=== PATIENT | female | born 1970 | race Caucasian/White ===

== ENCOUNTER 2021-11-01 00:26 | Day surgery (SDC) | payer OTHER, SELFPAY ==
[2021-10-19 12:46] VITALS: BMI 37.0
--- NOTE | 2021-11-01 09:38 | P.PNAN_ITS ---
Anes - Initial Pre Proc Eval Procedure: Operation Date: 11/01/21 10:30 Proposed Procedures p Colonoscopy - Yao Sandoval MD Date/Time: 11/01/21 09:38 Surgeon: Yao Sandoval MD Pre Op Diagnosis: positive cologuard Patient Data Age: 51 Gender: F Height: 1.5 m Weight: 83.1 kg Allergies Allergy/AdvReac Type Severity Reaction Status Date / Time adhesive tape AdvReac Itching Verified 11/01/21 09:44 Home Medications Medication Instructions Recorded Confirmed Type Bystolic 20 mg PO 2XD 10/19/21 10/19/21 History Humalog Mix 75-25(U-100)Insuln 46 units transdermal 1XD 10/19/21 10/19/21 History Humalog Mix 75-25(U-100)Insuln 58 units transdermal HS 10/19/21 10/19/21 History Zyrtec 10 mg PO DAILY 10/19/21 10/19/21 History aspirin 81 mg PO DAILY 10/19/21 10/19/21 History atorvastatin 40 mg tablet 40 mg PO DAILY 10/19/21 10/19/21 History mycophenolate sodium 360 mg 360 mg PO DAILY 10/19/21 10/19/21 History tablet,delayed release (Myfortic) nifedipine 30 mg tablet,extended 30 mg PO DAILY 10/19/21 10/19/21 History release 24 hr prednisone 5 mg tablet 5 mg PO DAILY 10/19/21 10/19/21 History Patient hx anesthesia problems: none Family hx anesthesia problems: none Results Review: All pre-operative results and documents have been reviewed as part of the pre- operative evaluation. [facility] Past Medical History Medical History (Updated 11/01/21 @ 09:39 by Gage Flores DO) Diabetes type 2, controlled GERD (gastroesophageal reflux disease) Hyperlipidemia Hypertension Polycystic kidney disease Social History Social History Smoking status: Never smoker Alcohol intake: current Alcohol use details: Socially Substance use: never Substance use type: does not use Living arrangements: with family Spiritual care concerns: No Anes - Eval Final PreProcedure Day of Procedure 11/01/21 09:38 Patient weight: obese Heart: regular rate and rhythm Lungs: clear to auscultation Airway: Mallampati scale class II Neurological: alert and oriented Last oral intake: >/= 8 hours ASA classification: III Emergent: no Anesthetic plan: proceed Anesthesia type and monitoring: general GIVS and standard monitoring Results Review: All pre-operative results and documents have been reviewed as part of the pre- operative evaluation. Informed Consent: The patient's anesthetic plan and its attendant risks and benefits were disc ussed with the patient/family/POA. Questions were solicited and answers provided to the satisfaction of the patient/family/POA.
[2021-11-01 09:45] VITALS: BP 179/86; PULSE 77; RESP 18; TEMP 36.6; O2SAT 98
--- NOTE | 2021-11-01 09:48 | SUR.PREOP ---
DR FLOYD NOTIFIED PT HAS HAD AN ABLATION, NO ORDERS FOR TEST PER DR FLOYD.
[2021-11-01 09:57] LABS: Glucose Point of Care 177 mg/dl (65-105)
[2021-11-01] MEDS: LACTATED RINGERS 1,000 ML 150 ML IV CONT (09:57)
--- NOTE | 2021-11-01 10:11 | PM.HPGS ---
History of Present Illness History of Present Illness Consent: Risks, benefits, and alternatives have been discussed and questions answered. Patient agrees to proceed with procedure. Chief complaint: positive cologuard Narrative: Ami Lewis is a 51 year old female here for first colonoscopy, had + cologuard Review of Systems Constitutional: Constitutional: Denies headache(s) and Denies weakness Eyes: Eyes: Denies blurry vision ENT: Reports Normal hearing present, Denies headache(s) and Denies neck pain Cardiovascular: Cardiovascular: Denies chest pain and Denies dyspnea Respiratory: Respiratory: Denies dyspnea Gastrointestinal: Gastrointestinal: Reports no additional gastrointestinal complaints Genitourinary: Genitourinary: Denies dysuria Musculoskeletal: Musculoskeletal: Denies neck pain Integumentary/Breasts: Skin/Breast: Denies dry skin Neurologic: Reports Normal hearing present, Denies headache(s) and Denies weakness Psychiatric: Psychiatric: Denies anxiety Endocrine: Endocrine: Denies change in body appearance Hematologic/Lymphatic: Hematologic/Lymphatic: Denies easy bleeding Allergic/Immunologic: Allergic/Immunologic: Denies urticaria PMFSH Past Medical History Medical History (Updated 11/01/21 @ 10:11 by Yao Sandoval MD) Diabetes type 2, controlled GERD (gastroesophageal reflux disease) Hyperlipidemia Hypertension Polycystic kidney disease Positive colorectal cancer screening using Cologuard test Social History Social History Smoking status: Never smoker Alcohol intake: current Alcohol use details: Socially Substance use: never Substance use type: does not use Living arrangements: with family Spiritual care concerns: No Meds Home Medications and Allergies Home Medications Medication Instructions Recorded Confirmed Type Bystolic 20 mg PO 2XD 10/19/21 10/19/21 History Humalog Mix 75-25(U-100)Insuln 46 units transdermal 1XD 10/19/21 10/19/21 History Humalog Mix 75-25(U-100)Insuln 58 units transdermal HS 10/19/21 10/19/21 History Zyrtec 10 mg PO DAILY 10/19/21 10/19/21 History aspirin 81 mg PO DAILY 10/19/21 10/19/21 History atorvastatin 40 mg tablet 40 mg PO DAILY 10/19/21 10/19/21 History mycophenolate sodium 360 mg 360 mg PO DAILY 10/19/21 10/19/21 History tablet,delayed release (Myfortic) nifedipine 30 mg tablet,extended 30 mg PO DAILY 10/19/21 10/19/21 History release 24 hr prednisone 5 mg tablet 5 mg PO DAILY 10/19/21 10/19/21 History tacrolimus 1 mg capsule, 2 mg PO Q12H 11/01/21 11/01/21 History immediate-release (Prograf) Allergies Allergy/AdvReac Type Severity Reaction Status Date / Time adhesive tape AdvReac Itching Verified 11/01/21 09:44 Vital Signs Vital Signs - 24 hr 11/01/21 09:45 Temperature 97.9 F Pulse Rate 77 Respiratory Rate 18 Blood Pressure 179/86 H Pulse Oximetry 98 Oxygen Delivery Room Air Exam Const: General: comfortable and no acute distress HENMT: General nose exam: Normal nares present Eyes: General: appearance normal, both eyes and all related structures Neck: Neck: no JVD Resp: Auscultation: clear to auscultation bilaterally Cardio: Rate: regular rate Rhythm: regular rhythm GI: Inspection: non-distended GI Palp: Yes Soft to palpation Skin: General skin exam: normal color Neuro: General: gait normal Speech: normal speech Extrem: General: normal to inspection Psych: Mental Status: mental status grossly normal Assessment and Plan Assessment and plan (1) Positive colorectal cancer screening using Cologuard test: Code(s): R19.5 - Other fecal abnormalities Status: Acute Assessment and Plan: colonoscopy
[2021-11-01 10:34] VITALS: BP 118/66; PULSE 70; RESP 23; O2SAT 94
[2021-11-01 10:44] VITALS: BP 141/78; PULSE 67; RESP 21; O2SAT 95
[2021-11-01 10:54] VITALS: BP 158/82; PULSE 66; RESP 25; O2SAT 95
== END 2021-11-01 11:04 | disposition home or self-care (01) ==
PROVIDERS: Visit Provider Internal Medicine Gastroenterology
PROC: 0DJD8ZZ Inspection of Lower Intestinal Tract, Via Natural or Artificial Opening Endoscopic (ICD-10-PCS; CPT 45378; principal; 2021-11-01 10:30)
DX: R19.5 Other fecal abnormalities (principal); D12.5 Benign neoplasm of sigmoid colon; K63.5 Polyp of colon; K64.8 Other hemorrhoids; E11.9 Type 2 diabetes mellitus without complications; K21.9 Gastro-esophageal reflux disease without esophagitis; I10 Essential (primary) hypertension; E78.5 Hyperlipidemia, unspecified; Q61.3 Polycystic kidney, unspecified; Z79.82 Long term (current) use of aspirin; Z79.4 Long term (current) use of insulin; E66.9 Obesity, unspecified; Z68.36 Body mass index [BMI] 36.0-36.9, adult
CPT/HCPCS: 45380; 82948; 88305; J2704; J7120

== ENCOUNTER 2024-12-16 01:02 | Day surgery (SDC) | payer OTHER, SELFPAY ==
[2024-12-05 15:23] VITALS: BMI 25.0
--- NOTE | 2024-12-05 15:52 | PC.NURSE ---
Prep instructions reviewed with patient, she is not to take the magnesium citrate due to kidney transplant and tacrolimus. She will take the miralax and laxative tab. She will call me for further instructitions if she is having any issues with constipation in the days prior to her prep.
[2024-12-16 08:16] VITALS: BP 133/82; PULSE 86; RESP 12; TEMP 36.3; O2SAT 100; BMI 25.5
[2024-12-16] MEDS: LACTATED RINGERS 1,000 ML 150 ML IV CONT (08:32)
--- NOTE | 2024-12-16 09:08 | WPDANESEPPF ---
Anes - Initial Pre Proc Eval Procedure: Operation Date: 12/16/24 09:00 Proposed Procedures p Screening Colonoscopy - Yao Sandoval MD Date/Time: 12/16/24 09:08 Surgeon: Yao Sandoval MD Pre Op Diagnosis: Personal history of colon polyps, unspecified Patient Data Age: 54 Gender: F Height: 1.5 m Weight: 57.4 kg Last Vital Signs Temp 36.3 C L 12/16/24 08:16 Pulse 86 12/16/24 08:16 Resp 12 12/16/24 08:16 BP 133/82 12/16/24 08:16 Pulse Ox 100 12/16/24 08:16 O2 Del Method Room Air 12/16/24 08:16 Allergies Allergy/AdvReac Type Severity Reaction Status Date / Time adhesive tape AdvReac Itching Verified 12/16/24 08:22 Home Medications ?Medication ?Instructions ?Recorded ?Confirmed ?Type Bystolic 20 mg PO 2XD 10/19/21 12/16/24 History Humalog Mix 75-25(U-100)Insuln 46 units transdermal 1XD 10/19/21 12/16/24 History Humalog Mix 75-25(U-100)Insuln 58 units transdermal HS 10/19/21 12/16/24 History Zyrtec 10 mg PO DAILY 10/19/21 12/16/24 History aspirin 81 mg PO DAILY 10/19/21 12/16/24 History atorvastatin 40 mg tablet 40 mg PO DAILY 10/19/21 12/16/24 History mycophenolate sodium 360 mg 360 mg PO DAILY 10/19/21 12/16/24 History tablet,delayed release (Myfortic) nifedipine 30 mg tablet,extended 30 mg PO DAILY 10/19/21 12/16/24 History release 24 hr prednisone 5 mg tablet 5 mg PO DAILY 10/19/21 12/16/24 History tacrolimus 1 mg capsule, 2 mg PO QAM 11/01/21 12/16/24 History immediate-release (Prograf) rabeprazole 20 mg tablet,delayed 20 mg PO DAILY 12/05/24 12/16/24 History release tacrolimus 1 mg capsule, 1 mg PO QPM 12/05/24 12/16/24 History immediate-release (Prograf) tirzepatide 10 mg/0.5 mL 10 mg subcut WEEKLY 12/05/24 12/16/24 History subcutaneous pen injector (Car) Patient hx anesthesia problems: none Family hx anesthesia problems: none Results Review: All pre-operative results and documents have been reviewed as part of the pre-operative evaluation. [facility] Past Medical History Medical History Positive colorectal cancer screening using Cologuard test Diabetes type 2, controlled Polycystic kidney disease GERD (gastroesophageal reflux disease) Hyperlipidemia Hypertension Social History Social History Smoking status: Never smoker Alcohol intake: current Alcohol use details: Socially Substance use: never Substance use type: does not use Living arrangements: with family Spiritual care concerns: No Anes - Eval Final PreProcedure Day of Procedure 12/16/24 09:08 Patient weight: normal Heart: regular rate and rhythm Lungs: clear to auscultation Airway: Mallampati scale class II Neurological: alert and oriented Last oral intake: >/= 8 hours ASA classification: III Emergent: no Anesthetic plan: proceed Anesthesia type and monitoring: general GIVS and standard monitoring Results Review: All pre-operative results and documents have been reviewed as part of the pre-operative evaluation. Informed Consent: The patient's anesthetic plan and its attendant risks and benefits were discussed with the patient/family/POA. Questions were solicited and answers provided to the satisfaction of the patient/family/POA.
--- NOTE | 2024-12-16 09:09 | PM.HPGS ---
History of Present Illness History of Present Illness Consent: Risks, benefits, and alternatives have been discussed and questions answered. Patient agrees to proceed with procedure. Chief complaint: Personal history of colon polyps, unspecified Narrative: Ami Lewis is a 54 year old female with colon polyp in 2021 Review of Systems Review of Systems: All systems reviewed & are unremarkable except as noted in HPI and below PMFSH Past Medical History Medical History (Updated 12/16/24 @ 09:10 by Yao Sandoval MD) Adenomatous colon polyp Positive colorectal cancer screening using Cologuard test Diabetes type 2, controlled Polycystic kidney disease GERD (gastroesophageal reflux disease) Hyperlipidemia Hypertension Social History Social History Smoking status: Never smoker Alcohol intake: current Alcohol use details: Socially Substance use: never Substance use type: does not use Living arrangements: with family Spiritual care concerns: No Meds Home Medications and Allergies Home Medications ?Medication ?Instructions ?Recorded ?Confirmed ?Type Bystolic 20 mg PO 2XD 10/19/21 12/16/24 History Humalog Mix 75-25(U-100)Insuln 46 units transdermal 1XD 10/19/21 12/16/24 History Humalog Mix 75-25(U-100)Insuln 58 units transdermal HS 10/19/21 12/16/24 History Zyrtec 10 mg PO DAILY 10/19/21 12/16/24 History aspirin 81 mg PO DAILY 10/19/21 12/16/24 History atorvastatin 40 mg tablet 40 mg PO DAILY 10/19/21 12/16/24 History mycophenolate sodium 360 mg 360 mg PO DAILY 10/19/21 12/16/24 History tablet,delayed release (Myfortic) nifedipine 30 mg tablet,extended 30 mg PO DAILY 10/19/21 12/16/24 History release 24 hr prednisone 5 mg tablet 5 mg PO DAILY 10/19/21 12/16/24 History tacrolimus 1 mg capsule, 2 mg PO QAM 11/01/21 12/16/24 History immediate-release (Prograf) rabeprazole 20 mg tablet,delayed 20 mg PO DAILY 12/05/24 12/16/24 History release tacrolimus 1 mg capsule, 1 mg PO QPM 12/05/24 12/16/24 History immediate-release (Prograf) tirzepatide 10 mg/0.5 mL 10 mg subcut WEEKLY 12/05/24 12/16/24 History subcutaneous pen injector (Car) Allergies Allergy/AdvReac Type Severity Reaction Status Date / Time adhesive tape AdvReac Itching Verified 12/16/24 08:22 Vital Signs Vital Signs - 24 hr 12/16/24 08:16 Temperature 97.3 F L Pulse Rate 86 Respiratory Rate 12 Blood Pressure 133/82 Pulse Oximetry 100 Oxygen Delivery Room Air Exam Const: General: comfortable and no acute distress HENMT: Face/Nose/Sinus: Normal nares present Eyes: General: appearance normal, both eyes and all related structures Neck: Neck: no JVD Resp: Auscultation: clear to auscultation bilaterally Cardio: Rate: regular rate Rhythm: regular rhythm GI: Inspection: non-distended GI Palp: Yes Soft to palpation Skin: General skin exam: normal color Extrem: General: normal to inspection Psych: Mental Status: mental status grossly normal Assessment and Plan Assessment and plan (1) Adenomatous colon polyp: Code(s): D12.6 - Benign neoplasm of colon, unspecified Status: Acute Assessment and Plan: colonoscopy
[2024-12-16 09:29] VITALS: BP 128/71; PULSE 85; RESP 17; O2SAT 100
[2024-12-16 09:39] VITALS: BP 131/77; PULSE 86; RESP 25; O2SAT 100
--- NOTE | 2024-12-16 09:42 | SUR.PHASEII ---
Patient BG is 71 via dexcom monitor in post-op. Patient declines any juice, and states she is going straight to breakfast.
[2024-12-16 09:49] VITALS: BP 133/69; PULSE 81; RESP 19; O2SAT 99
== END 2024-12-16 10:00 | disposition home or self-care (01) ==
PROVIDERS: Referring Provider Internal Medicine Gastroenterology; Visit Provider Internal Medicine Gastroenterology
PROC: 0DJD8ZZ Inspection of Lower Intestinal Tract, Via Natural or Artificial Opening Endoscopic (ICD-10-PCS; CPT 45378; principal; 2024-12-16 09:00)
DX: Z12.11 Encounter for screening for malignant neoplasm of colon (principal); K64.8 Other hemorrhoids; K57.30 Diverticulosis of large intestine without perforation or abscess without bleeding; E78.5 Hyperlipidemia, unspecified; I10 Essential (primary) hypertension; E11.9 Type 2 diabetes mellitus without complications; K21.9 Gastro-esophageal reflux disease without esophagitis; Q61.3 Polycystic kidney, unspecified; Z79.82 Long term (current) use of aspirin; Z79.51 Long term (current) use of inhaled steroids; Z79.85 Long-term (current) use of injectable non-insulin antidiabetic drugs; Z86.0100 Personal history of colon polyps, unspecified
CPT/HCPCS: 45378; J2003; J2704; J7120